=== PATIENT | male | born 1965 | race Caucasian/White ===

== ENCOUNTER 2018-09-27 18:19 | Emergency (ER) | payer MEDICARE ==
[2018-09-27 18:35] VITALS: RESP 18
[2018-09-27] MEDS ORDERED: GABAPENTIN 400 MG CAP PO STA (19:02)
--- NOTE | 2018-09-27 19:04 | ED ---
Recheck HPI - General Chief Complaint: Recheck/Abnormal Lab/Rx Stated Complaint: med refill Source: patient Mode of arrival: ambulatory Limitations: no limitations - History of Present Illness Initial Comments: 53-year-old male with past medical history of attention, chronic low back pain and peripheral neuropathy presenting today for chief complaint of medication refill. Patient states that a few days ago he dropped the rest of his gabapentin prescription down the sink. He states it is almost the end of his prescription and he called his doctor for refill refused to refill prescription as it is a controlled substance. Patient states he cannot take the neuropathy, denies any changes his neuropathy, recent falls or trauma to the back. He present for the emergency department for refill of medication. Remainder of ROS negative, patient denies any recent fever, chills, shortness of breath, chest pain, new or changes to back pain, abdominal pain, nausea or vomiting, new numbness or tingling, dysuria or hematuria, constipation or diarrhea, headaches or visual changes, or any other complaints. On arrival patient's blood pressure elevated. Patient is agitated. - Related Data Allergies Allergy/AdvReac Type Severity Reaction Status Date / Time cephalexin [From Keflex] AdvReac Rash/Hives Verified 09/27/18 18:35 Review of Systems ROS Statement: Those systems with pertinent positive or pertinent negative responses have been documented in the HPI. ROS Other: All systems not noted in ROS Statement are negative. Past Medical History Past Medical History: No Reported History History of Any Multi-Drug Resistant Organisms: None Reported Past Surgical History: Back Surgery Additional Past Surgical History / Comment(s): Back pain Past Psychological History: No Psychological Hx Reported Smoking Status: Former smoker Past Alcohol Use History: Abuse Past Drug Use History: None Reported General Exam - General Exam Comments Initial Comments: General: The patient is awake and alert, in no distress, and does not appear acutely ill. Eye: Pupils are equal, round and reactive to light, extra-ocular movements are intact. No nystagmus. There is normal conjunctiva bilaterally. No signs of icterus. Ears, nose, mouth and throat: There are moist mucous membranes and no oral lesions. Cardiovascular: There is a regular rate and rhythm. No murmur, rub or gallop is appreciated. Respiratory: Lungs are clear to auscultation, respirations are non-labored, breath sounds are equal. No wheezes, stridor, rales, or rhonchi. Musculoskeletal: Normal ROM, no tenderness. Strength 5/5. Sensation intact. Pulses equal bilaterally 2+. Neurological: A&O x 3. CN II-XII intact, There are no obvious motor or sensory deficits. Coordination appears grossly intact. Speech is normal. Skin: Skin is warm and dry and no rashes or lesions are noted. Psychiatric: Cooperative, aggitated Limitations: no limitations Course Vital Signs 09/27/18 09/27/18 18:31 19:33 Temperature 98.9 F 99.8 F H Pulse Rate 94 86 Respiratory 18 18 Rate Blood Pressure 174/105 159/101 O2 Sat by Pulse 99 100 Oximetry Medical Decision Making - Medical Decision Making Patient presented for medication refill. Patient was given a one-time dose of prescribed gabapentin 800 mg by mouth. I did have to contact with this time prescribing outpatient prescription, as gabapentin is a controlled substance. I discussed the importance of receiving medication refills from primary care provider. Patient states he has a refill next week and will speak with his primary care provider for further arrangement of medication refill. At this time patient has no other complaints. Patient stable for discharge. Discussed case with attending provider Dr. Day who agreed with impression and plan. He shouldn't blood pressure elevated discharge, he states this is because he is angry. He does not want any medication for blood pressure management, he states he'll follow-up with primary care provider Disposition Clinical Impression: Encounter for medication refill Disposition: HOME SELF-CARE Condition: Good Additional Instructions: Please use previously prescribed medication as discussed. Please follow-up with family doctor in the next 2 days. Please follow-up with pain management physician as scheduled. Please return to emergency room if the symptoms increase or worsen or for any other concerns, as discussed. Is patient prescribed a controlled substance at d/c from ED?: No Referrals: Lopez Johnson MD [Primary Care Provider] - 1-2 days Time of Disposition: 19:04
[2018-09-27 19:34] VITALS: BP 159/101; PULSE 86; TEMP 99.8
== END 2018-09-27 19:33 | disposition home or self-care (01) ==
LOC: EC 18:19
DX: Z76.0 Encounter for issue of repeat prescription (principal); Z87.891 Personal history of nicotine dependence; Z88.1 Allergy status to other antibiotic agents
CPT/HCPCS: 99281